=== PATIENT | female | born 1985 | race Asian ===

== ENCOUNTER → 2023-12-27 | Outpatient (CLI) | payer BC ==
--- NOTE | 2023-12-27 17:03 | MR ---
EXAMINATION TYPE: MR brain wo/w con DATE OF EXAM: 12/27/2023 3:33 PM CLINICAL INDICATION:Female, 38 years old with history of G44.219 EPISODIC TENSION HEADACHE; PHH, Head ache, left side static sounds COMPARISON: None TECHNIQUE: Multi planar, multi sequence imaging was performed through the brain including: T1, T2, In version recovery, susceptibility weighted imaging and gradient echo imaging and Diffusion weighted im aging. The patient was then given intravenous contrast and multi planar, T1 fat-saturation images wer e obtained. IV Contrast: 5 cc Gadavist FINDINGS: The gaming-white junctions, ventricular system, basal cisterns appear unremarkable. Diffusion-weighted imaging shows no evidence of restricted diffusion to suggest acute/subacute infarct. Intracranial ar terial flow voids are maintained. Midline structures show no abnormality. The susceptibility weighted images do not reveal any evidence for micro-hemorrhage. After administration of gadolinium, no abnor mal enhancement is seen. The bone marrow signal is within normal limits. Paranasal sinuses and mastoid air cells: No significant paranasal sinus disease. Visualized orbits: Orbital contents are intact. IMPRESSION: No evidence of intracranial mass, acute/subacute infarct, or abnormal enhancement.
== END | disposition home or self-care (01) ==
LOC: RADMRIMAIN 14:36
PROVIDERS: ATTEND Ophthalmology
DX: G44.219 Episodic tension-type headache, not intractable (principal); H47.339 Pseudopapilledema of optic disc, unspecified eye
CPT/HCPCS: 70553; A9585

== ENCOUNTER 2024-01-04 11:06 | Day surgery (SDC) | payer BC ==
[~2024-01-04 11:06] MED LIST: LACTATED RINGERS 1,000 ML IV SCH
[2024-01-04 12:00] VITALS: RESP 18
--- NOTE | 2024-01-04 13:08 | P.PCN ---
Date of Procedure: 01/04/24 Procedure(s) Performed: Preoperative diagnosis: Pseudopapillary edema Post operative diagnoses: PsedoPapillary edema Procedure= lumbar puncture Anesthesia= local infiltration with lidocaine 1% 3mL. Condition: stable Complication: none. Description of the procedure procedure risk and benefits discussed with the patient , consent signed. Patient and the procedure area placed in lateral position ( right side down ), back prepped with chlorhexidine 3 times been local infiltration of the skin and subcutaneous tissue with lidocaine 1% 3 mL for skin and subcu interstitial frustrations at L4 5 levels then 22-gauge Quincke-type needle advanced slowly at L4- 5 interlaminar space there was positive cerebrospinal fluid which was clear, no heme, no paresthesia ,total of 9 ML of clear cerebrospinal fluid collected in 4 different tubes 2-2-1/2 mL in each, then the needle removed and a Band-Aid applied and patient tolerated the procedure well without any complications. Opening pressure= 24 cm of water. Closing pressure= 17 cm of water (after removal of 9 mL of clear cerebrospinal fluid )
[2024-01-04 13:30] LABS: Glucose,CSF 53 mg/dL (40-70); Total Protein,CSF 50 mg/dL (12-60)
[2024-01-04 14:15] VITALS: BP 122/65; PULSE 64
== END 2024-01-04 13:51 | disposition home or self-care (01) ==
LOC: ORPAIN 11:06
PROVIDERS: ATTEND Specialist
DX: H47.333 Pseudopapilledema of optic disc, bilateral (principal); G44.219 Episodic tension-type headache, not intractable
CPT/HCPCS: 62270; 81025; 82945; 84157

== ENCOUNTER 2024-01-06 11:59 | Day surgery (SDC) | payer BC ==
[2024-01-06 13:13] VITALS: TEMP 97.6
--- NOTE | 2024-01-06 13:49 | P.PCN ---
Date of Procedure: 01/06/24 Procedure(s) Performed: Procedure= lumbar epidural blood patch. Preoperative diagnosis= postdural puncture headache. Postoperative diagnoses= post dural puncture headache. Indication for the procedure= patient developed severe positional headache, nausea and vomiting after lumbar puncture which was done on January 04, 2024 headache persists in spite of conservative treatment, there is no focal neurological deficit, no fever, no neck stiffness, headache worse with sitting and standing position, and improved with lying supine, for this reason patient is a good candidate for epidural blood patch. anesthesia= local infiltration with lidocaine 1% 3 mL. Complications= none. Description of the procedure= patient identified risks and benefits of the procedure explained to the patient and patient agreed with proceeding, vital signs monitored during the procedure and IV sedation given to decrease anxiety, Back lumbar area prepped with chlorhexidine 3 times, then drape applied the local infiltration of the skin and subcutaneous tissue with lidocaine 1% 3 mL at L5-S1 interlaminar space then 20-gauge Tuohy needle advanced slowly at L5-S1 interlaminar space, There was positive loss of resistance to normal saline, no heme no paresthesia no cerebrospinal fluid, then after that 20 ML of the blood taken from the patient under strict sterile technique, and after the antecubital area prepped with a chlorhexidine 3 times using 22-gauge Angiocath, and under sterile technique the 20 ML of the block taken from the patient Left anticubital vein, injected in the epidural space after negative aspiration for heme or CSF and there was no paresthesia then the needle removed intact the skin cleaned and the , bandage applied and patient discharged home in stable condition after discharge criteria met, and patient will follow up with the clinic as needed
[2024-01-06 13:58] VITALS: RESP 20
[2024-01-06 14:44] VITALS: BP 111/68; PULSE 66
== END 2024-01-06 14:36 | disposition home or self-care (01) ==
LOC: ORPAIN 11:59
PROVIDERS: ATTEND Specialist
DX: G97.1 Other reaction to spinal and lumbar puncture (principal); Y83.8 Other surgical procedures as the cause of abnormal reaction of the patient, or of later complication, without mention of misadventure at the time of the procedure
CPT/HCPCS: 62273; 81025